=== PATIENT | female | born 1940 | race Caucasian/White ===

== ENCOUNTER 2023-06-23 12:04 | Emergency (ER) | payer OTHER ==
[~2023-06-23] VITALS: Ht 160 cm; Wt 66.0 kg
[2023-06-23 12:59] VITALS: BP 130/49; PULSE 92; RESP 16; O2SAT 97
[2023-06-23] MEDS ORDERED: ACETAMINOPHEN 500 MG TAB PO ONE (13:15)
[2023-06-23 13:46] VITALS: TEMP 98.2
[2023-06-23] MEDS ORDERED: CEPH500C PO (14:07)
== END 2023-06-23 14:23 | disposition home or self-care (01) ==
LOC: ER 12:04 → EDBD 12:04 → ER 14:23
DX: S83.91XA Sprain of unspecified site of right knee, initial encounter (principal); S00.33XA Contusion of nose, initial encounter; S40.812A Abrasion of left upper arm, initial encounter; Z79.899 Other long term (current) drug therapy; W01.0XXA Fall on same level from slipping, tripping and stumbling without subsequent striking against object, initial encounter; Y93.89 Activity, other specified; Y92.89 Other specified places as the place of occurrence of the external cause; Y99.8 Other external cause status
CPT/HCPCS: 70160; 73060; 73562